=== PATIENT | female | born 1985 | race Caucasian/White ===

== ENCOUNTER → 2018-08-25 | Outpatient (CLI) | payer BC ==
[2018-08-25 17:07] LABS: HCT 42.1 % (34.0-46.0); HGB 14.4 gm/dL (11.4-16.0); MCH 29.4 pg (25.0-35.0); MCHC 34.3 g/dL (31.0-37.0); MCV 85.7 fL (80.0-100.0); Mean Platelet Volume 7.4; Platelet Count 197 k/uL (150-450); RBC 4.91 m/uL (3.80-5.40); RDW 12.4 % (11.5-15.5); WBC 9.7 k/uL (3.8-10.6)
[2018-08-25 18:29] LABS: Glucose 100 mg/dL (74-99)
--- NOTE | 2018-08-25 22:45 | US ---
EXAMINATION TYPE: Transabdominal DATE OF EXAM: 12/17/17 COMPARISON: NONE CLINICAL HISTORY: Z36 Confirm Dates. Positive beta hCG test. EXAM PERFORMED: Transabdominal (TA) EXAM MEASUREMENTS: GESTATIONAL AGE / DATING Physician Established: Not yet established EDC: Dates by LMP: LMP unknown Dates by First Scan: No previous this is first scan Dates by Current Scan for: (11weeks/3 days) EDC: 03/13/2019 MATERNAL ANATOMY Uterus: 13.0 x 5.9 x 8.1 cm Right Ovary: 2.7 x 1.9 x 1.8 cm Left Ovary: 2.0 x 1.2 x .4 cm Post CDS / Adnexa: wnl Presence of free fluid: No Presence of corpus luteal cyst: Yes, right ovary measuring 1.4 x 1.1 x 1.0 cm Presence of subchorionic bleed: No GESTATION / SURVEY CRL: 4.6 cm (11weeks/3 days) Yolk Sac (normal less than 6mm): 5mm Heart Rate: 163 bpm Rhythm: Normal IUP: Viable IUP Nuchal Translucency 10-14wks (normal less than 3mm): 1 mm Date of LMP: Unsure Beta HcG (if available): Not available at time of exam Single live intrauterine gestation is confirmed as gestational sac, yolk sac, and pole are pres ent. No free fluid is seen in pelvic cul-de-sac. Both ovaries are seen, within right ovary there is 1.4 cm anechoic lesion with septation could reflec t corpus luteal cyst. No suspicious extra ovarian adnexal lesions are present. IMPRESSION: Single live intrauterine gestation is confirmed, mean crown-rump length is 4.6 cm corresponding to 11 week 3 day old fetus.
[2018-08-26 06:07] LABS: HIV 1 AB Non-Reactive (Non-Reactive); HIV AB P24 Non-Reactive (Non-Reactive); HIV P24 AG Non-Reactive (Non-Reactive)
[2018-08-26 06:14] LABS: Toxoplasma Antibody (IgG) <3.0 IU/mL (<7.2); Toxoplasma Antibody (IgM) <3.0 AU/mL (<8.0)
== END | disposition home or self-care (01) ==
LOC: RADUSWWP 16:12
PROVIDERS: ATTEND Obstetrics & Gynecology
DX: Z36.9 Encounter for antenatal screening, unspecified (principal); Z34.81 Encounter for supervision of other normal pregnancy, first trimester; Z3A.11 11 weeks gestation of pregnancy
CPT/HCPCS: 76801; 82565; 82947; 85027; 86762; 86777; 86778; 86780; 86850; 86900; 86901; 87340; 87390

== ENCOUNTER 2019-03-17 05:57 | Inpatient (IN) | payer BC ==
[2019-03-17] MEDS ORDERED: TERBUTALINE 1 MG/ML VIAL SQ PRN (06:02)
[2019-03-17] MEDS ORDERED: CARBOPROST TROMETHAMINE 250 MCG/ML 1 ML AMP IM PRN (06:02)
[2019-03-17] MEDS ORDERED: OXYTOCIN 10 UNIT/ML 1 ML VIAL IM PRN (06:02)
[2019-03-17] MEDS ORDERED: METHYLERGONOVINE 0.2 MG/ML 1 ML AMP IM PRN (06:02)
[2019-03-17] MEDS ORDERED: LIDOCAINE 0.5% (PF) 5 MG/ML (50 ML SDV) SQ PRN (06:02)
[2019-03-17] MEDS ORDERED: OXYTOCIN 30 UNITS/500 ML NS 30 UNIT in SALINE 1 500ML.BAG IV SCH (06:15)
[2019-03-17 06:18] VITALS: RESP 16
[2019-03-17 06:28] LABS: Basophils % (A) 0 %; Eosinophils # (A) 0.2 k/uL (0-0.7); Eosinophils % (A) 2 %; HCT 38.9 % (34.0-46.0); HGB 13.6 gm/dL (11.4-16.0); Lymphocytes # (A) 2.3 k/uL (1.0-4.8); Lymphocytes % (A) 18 %; MCH 29.4 pg (25.0-35.0); MCHC 34.8 g/dL (31.0-37.0); MCV 84.4 fL (80.0-100.0); Mean Platelet Volume 8.6; Monocytes # (A) 0.5 k/uL (0-1.0); Monocytes % (A) 4 %; Neutrophils # (A) 9.7 k/uL (1.3-7.7); Neutrophils % (A) 75 %; Platelet Count 171 k/uL (150-450); RBC 4.62 m/uL (3.80-5.40); RDW 13.7 % (11.5-15.5); WBC 12.9 k/uL (3.8-10.6)
[2019-03-17] MEDS: LACTATED RINGERS 1,000 ML IV SCH ×3 (06:28→11:09)
[2019-03-17] MEDS ORDERED: BUTORPHANOL 1 MG/ML 1 ML VIAL IV PRN (11:47)
[2019-03-17] MEDS ORDERED: WITCH HAZEL 1 EACH MED..PAD TOPICAL PRN (13:43)
[2019-03-17] MEDS ORDERED: SIMETHICONE 80 MG CHEWABLE PO PRN (13:43)
[2019-03-17] MEDS ORDERED: LANOLIN CREAM 5 GM TUBE TOPICAL PRN (13:43)
[2019-03-17] MEDS ORDERED: ACETAMINOPHEN TAB 325 MG TAB PO PRN (13:43)
[2019-03-17] MEDS ORDERED: diphenhydrAMINE 50 MG/ML 1 ML VIAL IVP PRN ×2 (13:43)
[2019-03-17] MEDS ORDERED: BENZOCAINE/MENTHOL SPRAY 1 GM/SPRAY AEROSOL TOPICAL PRN (13:43)
[2019-03-17] MEDS ORDERED: diphenhydrAMINE 50 MG CAP PO PRN (13:43)
[2019-03-17] MEDS ORDERED: HYDROCORTISONE 2.5% RECTAL CREAM 30 GM TUBE RECTAL PRN (13:43)
[2019-03-17] MEDS ORDERED: diphenhydrAMINE 25 MG CAP PO PRN (13:43)
[2019-03-17] MEDS ORDERED: ZOLPIDEM 5 MG TAB PO PRN (13:43)
[2019-03-17] MEDS ORDERED: OXYTOCIN 20 UNITS/1000 ML NS 1,000 ML IV SCH (13:45)
[2019-03-17] MEDS: IBUPROFEN 600 MG TAB PO PRN (15:15)
[2019-03-17] MEDS: SENNOSIDES-DOCUSATE SODIUM 1 EACH TAB PO SCH (20:10)
--- NOTE | 2019-03-18 03:27 | P.HPOB ---
History of Present Illness H&P Date: 03/17/19 Chief Complaint: Induction of labor 33-year-old presents at 40 weeks' gestation for induction of labor. Her cervix is 3 cm dilated, 80% effaced, 0 station. She is armand irregularly. heart tones 140 with moderate variability and reactive. Review of Systems All systems: negative Constitutional: Denies chills, Denies fever Eyes: denies blurred vision, denies pain Ears, nose, mouth and throat: Denies headache, Denies sore throat Cardiovascular: Denies chest pain, Denies shortness of breath Respiratory: Denies cough Gastrointestinal: Denies abdominal pain, Denies diarrhea, Denies nausea, Denies vomiting Genitourinary: Denies dysuria, Denies hematuria Musculoskeletal: Denies myalgias Integumentary: Denies pruritus, Denies rash Neurological: Denies numbness, Denies weakness Psychiatric: Denies anxiety, Denies depression Endocrine: Denies fatigue, Denies weight change Past Medical History Past Medical History: No Reported History Additional Past Medical History / Comment(s): Obstetric history: She has had 2 terminations, third was a vaginal delivery in 2011. This is her fourth and she's had care with me since 9 weeks gestation. Blood type is B+, antibodies negative, rubella immune, treponema antibody negati ve, toxoplasmosis negative, HIV nonreactive. History of Any Multi-Drug Resistant Organisms: None Reported Past Surgical History: Appendectomy Additional Past Surgical History / Comment(s): Tubes in ears Past Anesthesia/Blood Transfusion Reactions: No Reported Reaction Past Psychological History: Anxiety, Depression Smoking Status: Former smoker Past Alcohol Use History: None Reported Past Drug Use History: None Reported - Past Family History Father Family Medical History: No Reported History Medications and Allergies Home Medications Medication Instructions Recorded Confirmed Type Fish Oil/Dha/Epa [Fish Oil 1,200 1 cap PO DAILY 03/17/19 03/17/19 History mg Fish Oil] Folic Acid 1 mg PO DAILY 03/17/19 03/17/19 History Pnv No.95/Ferrous Fum/Folic AC 1 each PO DAILY 03/17/19 03/17/19 History [ Multivitamin Tablet] Allergies Allergy/AdvReac Type Severity Reaction Status Date / Time No Known Allergies Allergy Verified 03/17/19 06:01 Exam Osteopathic Statement: *. No significant issues noted on an osteopathic structural exam other than those noted in the History and Physical/Consult. Vital Signs Temp Pulse Resp BP Pulse Ox 03/18/19 00:00 97.9 F 74 16 114/64 03/17/19 19:40 98.5 F 86 16 120/77 03/17/19 15:40 96 16 104/63 03/17/19 15:10 78 16 116/51 03/17/19 14:40 79 16 108/59 03/17/19 14:25 81 16 115/54 03/17/19 14:10 74 16 114/53 03/17/19 13:55 77 16 120/60 03/17/19 13:40 97.7 F 83 16 130/65 100 03/17/19 06:14 96.7 F L 73 16 122/60 98 Intake and Output 03/17/19 03/17/19 03/18/19 14:59 22:59 06:59 Intake Total 100 100 Balance 100 100 Intake: Oral 100 100 Other: # Voids 1 1 Heart: Regular rate and rhythm Lungs: Clear to auscultation bilaterally Abdomen: Soft, nontender Extremities: Negative Homans sign Results Result Diagrams: 03/17/19 06:15 Abnormal Lab Results - Last 24 Hours (Table) 03/17/19 Range/Units 06:15 WBC 12.9 H (3.8-10.6) k/uL Neutrophils # 9.7 H (1.3-7.7) k/uL Assessment and Plan (1) Normal labor Current Visit: Yes Status: Acute Code(s): O80 - ENCOUNTER FOR FULL-TERM UNCOMPLICATED DELIVERY; Z37.9 - OUTCOME OF DELIVERY, UNSPECIFIED SNOMED Code(s): 82295321 (2) Advanced maternal age (AMA) in Current Visit: Yes Status: Acute Code(s): BAV9274 - SNOMED Code(s): 511287245 Plan: 1. Induction of labor with amniotomy and Pitocin 2. Anticipate normal vaginal delivery
--- NOTE | 2019-03-18 03:28 | P.PROBDLV ---
Vaginal Delivery Note - . Vaginal Delivery Note: 33-year-old presents at 40 weeks' gestation for induction of labor. Her cervix is 3 cm dilated, 80% effaced, 0 station. She is armand irregularly. heart tones 140 with moderate variability and reactive. Pitocin was started. Amniotomy was performed at 7:20 AM and clear fluid noted. Patient progressed throughout the day and did get an epidural when she was uncomfortable. Her cervix was completely dilated at 1237. She pushed, and delivered a viable male infant over intact perineum under epidural anesthesia at 1329. Head delivered OA, nuchal cord 1 easily reduced, anterior shoulder delivered gentle downward guidance followed by posterior shoulder and rest of body. Nose mouth bulb suctioned, cord clamped and cut, infant placed mother's abdomen. Apgars 9, 10, weight 7 lbs. 10 oz. Placenta delivered spontaneously, intact with three-vessel cord at 1334. Vagina, cervix, and perineum were inspected. Second-degree midline laceration was repaired with 3-0 Vicryl. Estimated blood loss 200 mL. Mother and baby in stable condition.
--- NOTE | 2019-03-18 07:36 | P.DS ---
Providers Date of admission: 03/17/19 05:57 Expected date of discharge: 03/18/19 Attending physician: Amara Lawton Primary care physician: Stated None - Discharge Diagnosis(es) (1) Normal labor Current Visit: Yes Status: Resolved (2) Advanced maternal age (AMA) in Current Visit: Yes Status: Resolved (3) Normal vaginal delivery Current Visit: Yes Status: Acute Hospital Course: Patient presented for induction of labor. She underwent a normal vaginal delivery. Her course uncomplicated. She'll be discharged home day #1 in stable condition to follow-up with me in 6 weeks. Plan - Discharge Summary New Discharge Prescriptions: New Ibuprofen [Motrin] 600 mg PO Q6HR PRN #30 tab PRN Reason: Mild Pain Or Fever >= 100.5 No Action Folic Acid 1 mg PO DAILY Pnv No.95/Ferrous Fum/Folic AC [ Multivitamin Tablet] 1 each PO DAILY Fish Oil/Dha/Epa [Fish Oil 1,200 mg Fish Oil] 1 cap PO DAILY Discharge Medication List Fish Oil/Dha/Epa [Fish Oil 1,200 mg Fish Oil] 1 cap PO DAILY 03/17/19 [History] Folic Acid 1 mg PO DAILY 03/17/19 [History] Pnv No.95/Ferrous Fum/Folic AC [ Multivitamin Tablet] 1 each PO DAILY 03/17/19 [History] Ibuprofen [Motrin] 600 mg PO Q6HR PRN #30 tab 03/18/19 [Rx] Follow up Appointment(s)/Referral(s): Amara Lawton DO [Doctor of Osteopathic Medicine] - 6 Weeks Discharge Disposition: HOME SELF-CARE
[2019-03-18 09:26] VITALS: BP 111/64; PULSE 73; TEMP 98.1
[2019-03-18] MEDS: IBUPROFEN 600 MG TAB PO PRN (09:49)
[2019-03-18] MEDS: SENNOSIDES-DOCUSATE SODIUM 1 EACH TAB PO SCH (14:20)
== END 2019-03-18 16:10 | disposition home or self-care (01) | DRG 807 ==
LOC: 4FBP 05:57
PROVIDERS: ADMIT Obstetrics & Gynecology; ATTEND Obstetrics & Gynecology
PROC: 10E0XZZ Delivery of Products of Conception, External Approach (ICD-10-PCS; principal; 2019-03-17)
PROC: 0KQM0ZZ Repair Perineum Muscle, Open Approach (ICD-10-PCS; 2019-03-17)
PROC: 10907ZC Drainage of Amniotic Fluid, Therapeutic from Products of Conception, Via Natural or Artificial Opening (ICD-10-PCS; 2019-03-17)
PROC: 3E033VJ Introduction of Other Hormone into Peripheral Vein, Percutaneous Approach (ICD-10-PCS; 2019-03-17)
PROC: 00HU33Z Insertion of Infusion Device into Spinal Canal, Percutaneous Approach (ICD-10-PCS; 2019-03-17)
PROC: 3E0R3BZ Introduction of Anesthetic Agent into Spinal Canal, Percutaneous Approach (ICD-10-PCS; 2019-03-17)
DX: O69.81X0 Labor and delivery complicated by cord around neck, without compression, not applicable or unspecified (principal); Z37.0 Single live birth; O99.344 Other mental disorders complicating childbirth; O70.1 Second degree perineal laceration during delivery; F32.9 Major depressive disorder, single episode, unspecified; F41.9 Anxiety disorder, unspecified; Z3A.40 40 weeks gestation of pregnancy; Z87.891 Personal history of nicotine dependence; Z90.49 Acquired absence of other specified parts of digestive tract
CPT/HCPCS: 85025; 86850; 86900; 86901

== ENCOUNTER → 2020-02-02 | Outpatient (CLI) | payer BC ==
--- NOTE | 2020-02-04 08:11 | USB ---
Reason for exam: clinical finding. History: Family history of breast cancer in paternal aunt at age 50 and breast cancer in maternal cousin at age 35. Physical Findings: Nurse Summary: bilateral nodularity, all soft, movable, palpable bilateral axilla nodes, 1cm movable (nurse ts). US Breast BILAT Technologist: Morenita Rodriguez Right complete breast ultrasound includes all four quadrants, the retroareolar region and axilla. Finding demonstrates a 0.5 x 0.5 x 0.3cm round, cystic lesion at 12 o'clock and a 0.6 x 0.6 x 0.4cm round, cystic lesion at 2 o'clock. Thinned walled cysts. Left complete breast ultrasound includes all four quadrants, the retroareolar region and axilla. Finding demonstrates no cystic or solid lesion seen. These results were verbally communicated with the patient and result sheet given to the patient on 02/02/20. ASSESSMENT: Benign, BI-RAD 2 RECOMMENDATION: Clinical management of both breasts. Manage on a clinical basis with regard to palpable abnormality.
== END | disposition home or self-care (01) ==
LOC: RADUSWWP 13:49
PROVIDERS: ATTEND Obstetrics & Gynecology
DX: N63.20 Unspecified lump in the left breast, unspecified quadrant (principal); N63.10 Unspecified lump in the right breast, unspecified quadrant; Z80.3 Family history of malignant neoplasm of breast